=== PATIENT | male | born 1960 | race Caucasian/White ===

== ENCOUNTER 2016-03-16 22:49 | Inpatient (IN) | payer BC ==
[~2016-03-16] VITALS: Ht 181.6 cm; Wt 86.6 kg
[2016-03-16 23:30] VITALS: BP 148/89; PULSE 50; RESP 16; TEMP 98.6
[2016-03-17] VITALS (13 sets, daily range): BP systolic 129–155; BP diastolic 75–97; PULSE 51–76; RESP 12–20; TEMP 97.3–98.6; O2SAT 95–99
[2016-03-17] MEDS ORDERED: DIAZEPAM 2 MG TAB PO PRN (00:30)
[2016-03-17] MEDS ORDERED: CHLORHEXIDINE GLUCONATE 2 % 1 PACK (2 CLOTHS) TOP PRN (00:30)
[2016-03-17] MEDS ORDERED: SODIUM CHLORIDE 0.9% FLUSH 5 ML FLUSH IVF PRN (00:30)
[2016-03-17] MEDS ORDERED: ONDANSETRON HCL 4 MG/2 ML VIAL IV PRN (00:30)
[2016-03-17] MEDS ORDERED: MAGNESIUM HYDROXIDE SUSP 30 ML CUP PO PRN (00:30)
[2016-03-17] MEDS ORDERED: MORPHINE SULFATE 4 MG/ML INJ IV PRN (00:30)
[2016-03-17] MEDS ORDERED: MISCELLANEOUS NURSING INFORMATION XX SCH (00:30)
[2016-03-17] MEDS ORDERED: ACETAMINOPHEN/HYDROcodone 325 MG/5 MG TAB PO PRN (00:30)
[2016-03-17] MEDS ORDERED: ENALAPRILAT 1.25 MG/ML VIAL IV PRN (00:30)
--- NOTE | 2016-03-17 00:47 | HHI.HP ---
[facility] Service Critical Care Medicine Primary Care Physician Non-Staff Admission Diagnosis Diagnosis: Chief Complaint: Right chest and abdominal pain Travel History International Travel<30 Days: No Contact w/Intl Traveler <30 Da: No Traveled to Known Affected Are: No History of Present Illness 55-year-old gentleman was repairing patio screen when he fell to the ground approximately 8 feet striking the pool deck on his right side. There initially called 911 but refused transport, then as the pain progressed and went to the hospital. He underwent CT had cervical spine chest abdomen and pelvis at an outside hospital and he was found to have multiple grade 2 liver lacerations without extravasation of contrast and right-sided rib fractures. He was transverse referred to [place] for definitive management. Currently is resting quietly and his pain is controlled. Review of Systems Constitutional: DENIES: Diaphoretic episodes, Fatigue, Fever, Weight gain, Weight loss, Chills, Dizziness, Change in appetite, Night Sweats Endocrine: DENIES: Heat/cold intolerance, Polydipsia, Polyuria, Polyphagia Eyes: DENIES: Blurred vision, Diplopia, Eye inflammation, Eye pain, Vision loss , Photosensitivity, Double Vision Ears, nose, mouth, throat: DENIES: Tinnitus, Hearing loss, Vertigo, Nasal discharge, Oral lesions, Throat pain, Hoarseness, Ear Pain, Running Nose, Epistaxis, Sinus Pain, Toothache, Odynophagia Respiratory: DENIES: Apneas, Cough, Snoring, Wheezing, Hemoptysis, Sputum production, Shortness of breath Cardiovascular: DENIES: Chest pain, Palpitations, Syncope, Dyspnea on Exertion , PND, Lower Extremity Edema, Orthopnea, Claudication Gastrointestinal: COMPLAINS OF: Abdominal pain (right upper quadrant), DENIES : Black stools, Bloody stools, Constipation, Diarrhea, Nausea, Vomiting, Difficulty Swallowing, Anorexia Genitourinary: DENIES: Sexual dysfunction, Urinary frequency, Urinary incontinence, Urgency, Hematuria, Dysuria, Nocturia, Penile Discharge, Testicular Pain, Testicular Swelling Musculoskeletal: COMPLAINS OF: Muscle aches (right side) Integumentary: DENIES: Abnormal pigmentation, Nail changes, Pruritus, Rash Hematologic/lymphatic: DENIES: Bruising, Lymphadenopathy Immunologic/allergic: DENIES: Eczema, Urticaria Neurologic: DENIES: Abnormal gait, Headache, Localized weakness, Paresthesias, Seizures, Speech Problems, Tremor, Poor Balance Psychiatric: DENIES: Anxiety, Confusion, Mood changes, Depression, Hallucinations, Agitation, Suicidal Ideation, Homicidal Ideation, Delusions Past Family Social History Allergies: Coded Allergies: No Known Allergies (Unverified , 03/17/16) Past Medical History Denies Past Surgical History Right shoulder surgery 2 Knee surgery as a child Reported Medications None Family History Reviewed and not relevant Social History Social drinker denies tobacco or drug use Physical Exam Physical Exam Well proportioned, well-nourished 55-year-old gentleman lying in no acute distress Head small occipital hematoma otherwise atraumatic normocephalic Pupils equal round reactive to light extra ocular movements intact sclerae anicteric conjunctiva is pink Neck is soft trachea is midline no masses Lungs clear to auscultation bilaterally there is no tenderness or crepitus to palpation, mild tenderness to the right lateral chest wall Abdomen soft mild right upper quadrant tenderness, no diffuse tenderness no peritonitis no rebound no guarding, no abdominal distention Pelvis is stable nontender femoral pulses are palpable bilaterally No clubbing cyanosis or edema distal pulses are palpable bilaterally Skin patient is very samuel, some old scarring to his left knee Cranial nerves II through XII appear grossly intact Patient's mood and affect are appropriate Assessment and Plan Assessment and Plan 55-year-old gentleman status post fall with right-sided rib fractures, no pneumothorax and multiple grade 2 liver lacerations without active hemorrhage -Admit to trauma ICU for serial hemoglobins and continuous hemodynamic monitoring -Pain medication as needed -Repeat chest x-ray in the morning to check for occult pneumothorax Alphonse Rodriguez MD Mar 17, 2016 00:47
[2016-03-17] MEDS: LACTATED RINGER'S 1000 ML INJ 1,000 ML IV SCH ×3 (01:08→08:30)
[2016-03-17] MEDS: CHLORHEXIDINE GLUCONATE 2 % 1 PACK (2 CLOTHS) TOP SCH (01:09)
--- NOTE | 2016-03-17 01:19 | RADRPT ---
EXAM DATE/TIME: 03/17/2016 00:50 [place] COMPARISON: No previous studies available for comparison. INDICATIONS : Chest pain after fall off of a roof. MEDICAL HISTORY : None. SURGICAL HISTORY : None. ENCOUNTER: Initial ACUITY: 1 day PAIN SCORE: 8/10 LOCATION: Bilateral chest FINDINGS: A single view of the chest demonstrates the lungs to be symmetrically aerated without evidence of mas s, infiltrate or effusion. The cardiomediastinal contours are unremarkable. Osseous structures are intact. CONCLUSION: Normal examination. Vern Mobley Jr., MD on March 17, 2016 at 1:18 Board Certified Radiologist. This report was verified electronically.
[2016-03-17 01:21] LABS: AUTOMATED NEUTROPHIL # 10.6 TH/MM3 (1.8-7.7); BASOPHIL % 0.3 % (0.0-2.0); EOSINOPHIL % 0.1 % (0.0-4.0); HEMATOCRIT 38.6 % (39.0-51.0); HEMO FLAGS DIFF FINAL; LYMPH % 10.1 % (9.0-44.0); LYMPHOCYTE # 1.3 TH/MM3 (1.0-4.8); MEAN CELL VOLUME 88.1 FL (80.0-100.0); MEAN CORPUSCULAR HEMOGLOBIN 29.6 PG (27.0-34.0); MEAN CORPUSCULAR HGB CONC 33.6 % (32.0-36.0); MONO % 5.6 % (0.0-8.0); NEUT % 83.9 % (16.0-70.0); PLATELET COUNT 183 TH/MM3 (150-450); RED BLOOD COUNT 4.38 MIL/MM3 (4.50-5.90); RED CELL DISTRIBUTION WIDTH 15.3 % (11.6-17.2); WHITE BLOOD COUNT 12.6 TH/MM3 (4.0-11.0)
[2016-03-17 04:58] LABS: HEMATOCRIT 36.4 % (39.0-51.0); REVIEW FLAG FINAL
[2016-03-17 08:38] LABS: HEMATOCRIT 37.3 % (39.0-51.0); REVIEW FLAG FINAL
[2016-03-17] MEDS: ACETAMINOPHEN/HYDROcodone 325 MG/5 MG TAB PO PRN ×2 (11:10→17:22)
[2016-03-17 14:29] LABS: REVIEW FLAG FINAL
--- NOTE | 2016-03-17 15:04 | HHI.CCPN ---
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 and has remained stable Hemoglobin is stable Abdomen is soft with active bowel sounds tender in the right upper quadrant and mid abdomen and so is the rib cage Patient is fully awake and alert and oriented Will transfer to patient to floor today and discontinue serial H&H All things equal patient will be discharged tomorrow Objective Vital Signs Date Time Temp Pulse Resp B/P Pulse Ox O2 Delivery O2 Flow Rate FiO2 03/17/16 12:00 98.0 52 20 132/80 96 03/17/16 08:50 Room Air 03/17/16 05:00 2 Intake and Output 03/16/16 03/16/16 03/17/16 08:00 16:00 00:00 Intake Total 360 ml Balance 360 ml Result Diagram: 03/17/16 1411 Imaging Last 24 hours Impressions Chest X-Ray 03/17/16 0600 Signed Impressions: Service Date/Time: Thursday, March 17, 2016 00:50 - CONCLUSION: Normal examination. Vern Mobley Jr., MD Assessment and Plan Attestation The exam, history, and the medical decision-making described in the above note were completed with the assistance of the mid-level provider. I reviewed and agree with the findings presented. I attest that I had a [id number] encounter with the patient on the same day, and personally performed and documented my assessment and findings in the medical record. Critical care time 32 minutes. Brenda Jones MD Mar 17, 2016 15:04
[2016-03-17] MEDS: DOCUSATE SODIUM 100 MG CAP PO SCH (19:47)
[2016-03-17] MEDS ORDERED: FAMOTIDINE 20 MG TAB PO SCH (21:00)
[2016-03-18] VITALS: BP 130/82; PULSE 71; RESP 16; TEMP 99.4; O2SAT 95
[2016-03-18] MEDS: ACETAMINOPHEN/HYDROcodone 325 MG/5 MG TAB PO PRN ×2 (00:55→07:13)
[2016-03-18 04:00] VITALS: BP 133/90; PULSE 55; RESP 18; TEMP 97.4; O2SAT 95
[2016-03-18] MEDS: CHLORHEXIDINE GLUCONATE 2 % 1 PACK (2 CLOTHS) TOP SCH (04:00)
[2016-03-18] MEDS: DOCUSATE SODIUM 100 MG CAP PO SCH (07:14)
[2016-03-18 08:00] VITALS: BP 151/92; PULSE 58; RESP 16; TEMP 98.8; O2SAT 96
[2016-03-18] MEDS ORDERED: PNEUMOCOCCAL POLYVALENT INJ 25 MCG/0.5 ML SYR IM ONE (10:00)
[2016-03-18] MEDS ORDERED: INFLUENZA VIRUS VACCINE (QUADRIVALENT) 0.5 ML SYR IM ONE (10:00)
[2016-03-18] MEDS ORDERED: PERC5TAB12 PO (10:34)
--- NOTE | 2016-03-18 13:55 | HHI.DS ---
Discharge Summary Admission Date Mar 17, 2016 at 04:47 Discharge Date: Mar 18, 2016 Admitting Diagnosis Brief History S/P trauma: Fall from approximately 8 feet. CBC/BMP: 03/17/16 1411 Significant Findings Laboratory Tests Test 03/16/16 03/17/16 03/17/16 23:45 04:30 08:00 White Blood Count 12.6 TH/MM3 (4.0-11.0) Red Blood Count 4.38 MIL/MM3 (4.50-5.90) Hematocrit 38.6 % 36.4 % 37.3 % (39.0-51.0) (39.0-51.0) (39.0-51.0) Neutrophils (%) (Auto) 83.9 % (16.0-70.0) Neutrophils # (Auto) 10.6 TH/MM3 (1.8-7.7) Hemoglobin 12.3 GM/DL 12.6 GM/DL (13.0-17.0) (13.0-17.0) Imaging Last Impressions Chest X-Ray 03/17/16 0600 Signed Impressions: Service Date/Time: Thursday, March 17, 2016 00:50 - CONCLUSION: Normal examination. Vern Mobley Jr., MD PE at Discharge GENERAL: 55 year old well-nourished, well developed male lying in bed. SKIN: Warm and dry. HEAD: Atraumatic. Normocephalic. EYES: PERRL. ENT: No nasal bleeding or discharge. Mucous membranes pink and moist. NECK: Trachea midline. No JVD. CARDIOVASCULAR: Regular rate and rhythm. RESPIRATORY: No accessory muscle use. Lungs clear and diminished to auscultation. Breath sounds equal bilaterally. GASTROINTESTINAL: Abdomen soft, non-tender, nondistended. + BS. MUSCULOSKELETAL: Extremities without cyanosis, or edema. No obvious deformities. NEUROLOGICAL: Awake and alert. Normal speech. Hospital Course [place]: 55 year old male sustained a fall from approximately 8 feet while repairing a patio screen. Patient arrived as a transfer from another hospital for Trauma admission. INJURIES: RIGHT rib fx Multiple grade 2 liver lacerations Diet:Regular, tolerating well Pulm: IS, encouraged to cough and deep breath at home to prevent pneumonia. Pain: [place]. Morphine IV. Reports [place] not effective, discharged with Percocet RX. Activity: OOB. PT evaluated, no needs at home. GI: Pepcid Bowel: Colace. MOM. DVT: SCD's Hemoglobin stable, no signs of active bleeding. Patient requesting to go home. Patient advised to refrain from strenuous activity for the next week. F/U with PCP in 2 weeks. Patient is stable from Trauma surgery standpoint to safely discharge home. Pt Condition on Discharge: Stable Discharge Disposition: Discharge Home Discharge Instructions DIET: Follow Instructions for: As Tolerated, No Restrictions Activities you can perform: Full Weight Bearing Activities to Avoid: Concussion Sports, Contact Sports, Strenuous Activity Janet Leo Mar 18, 2016 13:55
--- NOTE | 2016-04-18 22:50 | PD ---
HPI Chief Complaint: Fall Time Seen by Provider: 00:42 Travel History International Travel<30 days: No Contact w/Intl Traveler<30days: No Traveled to known affect area: No History of Present Illness HPI 55-year-old male who was up on the roof doing a repair job when he lost his footing, slipped and fell and ended up falling into an empty swimming pool. Initially he did not do anything but then he had pain on the right side of his chest and upper abdomen which continued to get worse and he decided to go Hospital. In the emergency room a CT cervical spine and abdomen pelvis was done which showed a grade 2 liver laceration. Patient was transferred to this ER after speaking to the trauma surgeon who had accepted the case. He did not lose consciousness. And vital signs remained stable the entire time. Upon arrival patient was awake, answering questions appropriately and remembered the entire event. [facility] Past Medical History Narrative Medical List of his past medical history is reviewed from the nursing note. Medical History: Denies Significant Hx Cancer: No Cardiovascular Problems: No Diabetes: No Endocrine: No Genitourinary: No Immune Disorder: No Musculoskeletal: Yes (lower back) Neurologic: No Psychiatric: No Respiratory: No Thyroid Disease: No Tetanus Vaccination: < 5 Years Past Surgical History Abdominal Surgery: No Cardiac Surgery: No Ear Surgery: No Endocrine Surgery: No Eye Surgery: No Genitourinary Surgery: No Gynecologic Surgery: No Joint Replacement: Yes (RT SHOULDER) Oral Surgery: Yes (root canals) Thoracic Surgery: No Social History Alcohol Use: No Tobacco Use: No Substance Use: No Allergies-Medications (Allergen,Severity, Reaction): Coded Allergies: No Known Allergies (Unverified , 03/17/16) Comments No known drug allergies. Reported Meds & Prescriptions Reported Meds & Active Scripts Active Narrative Medication List of his home medications reviewed Review of Systems Except as stated in HPI: all other systems reviewed are Neg Physical Exam Narrative GENERAL: Awake, alert, answering questions, mild distress SKIN: Warm and dry. HEAD: Atraumatic. Normocephalic. EYES: Pupils equal and round. No scleral icterus. No injection or drainage. ENT: No nasal bleeding or discharge. Mucous membranes pink and moist. NECK: Trachea midline. No JVD. CARDIOVASCULAR: Regular rate and rhythm. No murmur appreciated. RESPIRATORY: No accessory muscle use. Clear to auscultation. Breath sounds equal bilaterally. Tenderness over the right rib cage GASTROINTESTINAL: Abdomen soft, tender right upper quadrant, nondistended. Hepatic and splenic margins not palpable. MUSCULOSKELETAL: No obvious deformities. No clubbing. No cyanosis. No edema. NEUROLOGICAL: Awake and alert. No obvious cranial nerve deficits. Motor grossly within normal limits. Normal speech. PSYCHIATRIC: Appropriate mood and affect; insight and judgment normal. Data Data Orders Type And Screen (03/17/16 00:15) Complete Blood Count With Diff (03/17/16 00:15) Admit To Inpatient (03/17/16 ) Vital Signs (Adult) ALE.QSHIFT (03/17/16 00:30) Intake + Output ALE.Q8H (03/17/16 00:30) Activity Oob Ad Luli (03/17/16 00:30) Diet Regular Basic (03/17/16 Breakfast) Scd / Freddie / Foot Pump ALE.QSHIFT (03/17/16 00:30) Resp Incentive Spirometry (03/17/16 ) Lactated Ringer's 1000 Ml Inj (Lr 1000 M (03/17/16 00:30) Sodium Chloride 0.9% Flush (Ns Flush) (03/17/16 00:30) Morphine Inj (Morphine Inj) (03/17/16 00:30) Acetamin-Hydrocod 325-5 Mg ([place] 5-325 (03/17/16 00:30) Acetamin-Hydrocod 325-5 Mg ([place] 5-325 (03/17/16 00:30) Enalaprilat Inj (Vasotec Inj) (03/17/16 00:30) Ondansetron Inj (Zofran Inj) (03/17/16 00:30) Docusate Sodium (Colace) (03/17/16 21:00) Magnesium Hydroxide Liq (Milk Of Magnesi (03/17/16 00:30) ^ Initiate Protocol (03/17/16 00:30) ^ Instruction (03/17/16 00:30) [facility] [place] (03/17/16 00:30) Chlorhexidine 2% Cloth (Chlorhexidine 2% (03/17/16 04:00) Chlorhexidine 2% Cloth (Chlorhexidine 2% (03/17/16 00:30) [facility] Pcr Surveillance (03/17/16 00:30) Inpatient Certification (03/17/16 ) Chest, Single Ap (03/17/16 06:00) Hgb & Hct (03/17/16 04:00) Hgb & Hct (03/17/16 08:00) Hgb & Hct (03/17/16 12:00) Diazepam (Valium) (03/17/16 00:30) Admit Order (Ed Use Only) (03/17/16 04:43) MDM Medical Decision Making Medical Screen Exam Complete: Yes Emergency Medical Condition: Yes Medical Record Reviewed: Yes Differential Diagnosis Liver laceration, rib fracture Narrative Course The trauma surgeon was notified of the patient's arrival. Patient did not have any pneumothorax. Patient was admitted to the trauma surgeon. He remained hemodynamically stable. Procedures EKG Prior to Arrival: No Physician Communication Physician Communication Dr. Rodriguez Diagnosis Primary Impression: Fall Qualified Code: W19.XXXA - Fall, initial encounter Additional Impression: Liver laceration, grade II, without open wound into cavity Qualified Code: S36.114A - Liver laceration, grade II, without open wound into cavity, initial encounter Admitting Information Admitting Physician Requests: Admit Patient Instructions: Rib Fracture (DC), Fall Prevention (DC) Scripts Oxycodone-Acetaminophen (Percocet)5-325 mg Tab1-2 Tab PO Q4H PRN (PAIN) #40 TAB Ref 0 Prov:Alphonse Rodriguez MD 03/18/16 Shanika Pablo MD Apr 18, 2016 22:50
== END 2016-03-18 11:35 | disposition home or self-care (01) | DRG 442 ==
LOC: NEDAMB 22:49 → NEDA 03-17 04:47 → N03B 03-17 08:39 → HOCB 03-17 16:19
PROVIDERS: ADMIT Surgery; ATTEND Surgery
DX: S36.114A Minor laceration of liver, initial encounter (principal); S22.31XA Fracture of one rib, right side, initial encounter for closed fracture; S00.03XA Contusion of scalp, initial encounter; Z23 Encounter for immunization; W17.89XA Other fall from one level to another, initial encounter; Y93.H3 Activity, building and construction
CPT/HCPCS: 71010; 85014; 85018; 85025; 86850; 86900; 86901; 87641; 90686; 90732; 94150; 96365; 96366; J2270; J7120; Q2038